=== PATIENT | male | born 1975 | race Two or more races ===

== ENCOUNTER 2020-12-01 09:47 | Outpatient (REF) | payer MEDICAID, SELFPAY ==
--- NOTE | ~2020-12-01 | US_ITS ---
EXAMINATION: US SCROTUM CLINICAL INFORMATION: Painful mass on right side of scrotum x 3 years. COMPARISON: None TECHNIQUE: A sonogram of the scrotum was performed assessing rosenberg-scale appearance and color Doppler flow. Spectral Doppler analysis of the arterial and venous flow were performed in the testes bilaterally. FINDINGS: RIGHT: Right testicle measures 4.4 x 2.3 x 3.5 cm, volume 18.5 mL. Superficial to the right testicle within the subcutaneous tissues, there is a 1.1 x 0.8 x 0.9 cm hyperechoic, ovoid lesion without Doppler detectable vascular flow. No testicular parenchymal lesion. Spectral Doppler analysis of the arterial and venous flow is normal in the right testis. Right epididymal head is normal in size. No right hydrocele or varicocele is seen. Right epididymal Doppler flow is normal. LEFT: Left testicle measures 5.0 x 2.3 x 3.1 cm, volume 18.8 mL. No focal testicular parenchymal lesions are visualized. Spectral Doppler analysis of the arterial and venous flow is normal in the left testis. Left epididymal head is normal in size. No left hydrocele or varicocele is seen. Left epididymal Doppler flow is normal. US/US scrotum IMPRESSION: Superficial soft tissue lesion adjacent to the right testicle measuring up to 1.1 cm which appears hyperechoic with no Doppler detectable vascular flow. Findings are nonspecific. No testicular parenchymal lesion.
== END 2020-12-01 09:48 | disposition home or self-care (01) ==
LOC: HO.US 09:47
PROVIDERS: PCP Internal Medicine; Visit Provider Nurse Practitioner Primary Care
DX: D17.9 Benign lipomatous neoplasm, unspecified (principal)
CPT/HCPCS: 76870

== ENCOUNTER → 2021-01-21 14:20 | Outpatient (BNVA) | payer MEDICAID, SELFPAY | PROVIDERS: PCP Internal Medicine; Visit Provider Urology | DX: N50.9 Disorder of male genital organs, unspecified (principal) | CPT/HCPCS: 99202 ==

== ENCOUNTER 2021-03-04 08:38 | Outpatient (REF) | payer MEDICAID, SELFPAY | END 2021-03-04 08:39 | disposition home or self-care (01) | LOC: HO.LAB 08:38 | PROVIDERS: PCP Internal Medicine; Visit Provider Urology | DX: L72.3 Sebaceous cyst (principal) | CPT/HCPCS: 11422; 88305; 88311 ==

== ENCOUNTER → 2021-03-18 10:11 | Outpatient (BNVA) | payer MEDICAID, SELFPAY | PROVIDERS: PCP Internal Medicine; Visit Provider Urology ==

== ENCOUNTER 2021-10-28 11:29 | Outpatient (REF) | payer MEDICAID, SELFPAY | END 2021-10-28 11:30 | disposition home or self-care (01) | LOC: HO.LAB 11:29 | PROVIDERS: Visit Provider Internal Medicine | DX: Z13.89 Encounter for screening for other disorder (principal) | CPT/HCPCS: 87635; C9803 ==

== ENCOUNTER 2023-04-19 09:26 | Outpatient (REF) | payer MEDICAID, SELFPAY ==
[2023-04-19 11:28] LABS: Estimated Average Glucose 169 mg/dL; Hemoglobin A1c % 7.5 %
[2023-04-19 12:09] LABS: Alanine Aminotransferase 31 U/L (0-40); Alkaline Phosphatase 120 U/L (39-117); Anion Gap 11 (12-20); Aspartate Amino Transferase 17 U/L (5-37); Bilirubin Total 0.8 mg/dL (0.0-1.0); Blood Urea Nitrogen 13 mg/dL (9-16); Calcium 9.3 mg/dL (8.4-10.2); Carbon Dioxide 26 mmol/L (22-29); Chloride 107 mmol/L (96-108); Estimated Glomerular Filt Rate > 60; Glucose Random 135 mg/dL (60-115); Potassium 3.9 mmol/L (3.3-5.1); Sodium 140 mmol/L (135-145); Total Protein 7.2 g/dL (6.5-8.0)
[2023-04-19 12:34] LABS: Folate 13.8 ng/mL (> or = 4.0); Vitamin B12 504 pg/mL (200-900)
[2023-04-22 13:33] LABS: H Pylori Breath Test Negative (Negative)
[2023-04-24 14:58] LABS: Vitamin D 25-OH, D2 <4 ng/mL; Vitamin D 25-OH, D3 20 ng/mL; Vitamin D 25-OH, Total 20 ng/mL (30-100)
[2023-04-25 12:48] LABS: Transglutaminase Ab IgG <1.0 U/mL; Transglutaminase IgA <1.0 U/mL
== END 2023-04-19 09:27 | disposition home or self-care (01) ==
LOC: HO.LAB 09:26
PROVIDERS: PCP Internal Medicine; Visit Provider Nurse Practitioner Family
DX: Z01.818 Encounter for other preprocedural examination (principal); R10.9 Unspecified abdominal pain; R14.0 Abdominal distension (gaseous); K21.9 Gastro-esophageal reflux disease without esophagitis; K64.9 Unspecified hemorrhoids; R11.0 Nausea; R10.13 Epigastric pain; K58.2 Mixed irritable bowel syndrome; K59.04 Chronic idiopathic constipation; K59.1 Functional diarrhea; E11.9 Type 2 diabetes mellitus without complications; E55.9 Vitamin D deficiency, unspecified
CPT/HCPCS: 36415; 80053; 82306; 82607; 82746; 83013; 83036; 86140; 86364; 99202

== ENCOUNTER 2023-04-20 10:27 | Outpatient (REF) | payer MEDICAID, SELFPAY | END 2023-04-20 10:28 | disposition home or self-care (01) | LOC: HO.LNP 10:27 | PROVIDERS: Visit Provider Nurse Practitioner Family | DX: Z13.89 Encounter for screening for other disorder (principal) | CPT/HCPCS: 83013 ==

== ENCOUNTER → 2023-08-17 09:51 | Outpatient (BNVA) | payer SELFPAY | PROVIDERS: PCP Internal Medicine; Visit Provider Internal Medicine ==

== ENCOUNTER 2024-07-19 14:19 | Outpatient (REF) | payer SELFPAY ==
[2024-07-19 16:43] LABS: Estimated Average Glucose 189 mg/dL; Hemoglobin A1c % 8.2 % (<6.0)
[2024-07-19 17:03] LABS: Alanine Aminotransferase 43 U/L (0-40); Albumin Level 4.2 g/dL (3.5-5.0); Alkaline Phosphatase 116 U/L (39-117); Anion Gap 12 (12-20); Aspartate Amino Transferase 31 U/L (5-37); Bilirubin Total 0.5 mg/dL (0.0-1.0); Blood Urea Nitrogen 16 mg/dL (9-16); Calcium 9.6 mg/dL (8.4-10.2); Carbon Dioxide 23 mmol/L (22-29); Chloride 108 mmol/L (96-108); Cholesterol 193 mg/dL (<200); Estimated Glomerular Filt Rate > 60; Glucose Random 123 mg/dL (60-115); HDL Cholesterol 38 mg/dL (>40); LDL Cholesterol Calculated 111 mg/dL (<100); Potassium 3.8 mmol/L (3.3-5.1); Sodium 139 mmol/L (135-145); Total Protein 7.5 g/dL (6.5-8.0); Triglycerides 223 mg/dL (<150)
[2024-07-19 17:18] LABS: Vitamin B12 429 pg/mL (200-900)
[2024-07-19 17:20] LABS: TSH reflex Free T4 0.49 uIU/mL (0.32-4.0)
[2024-07-20 07:50] LABS: H Pylori Breath Test Negative (Negative)
== END 2024-07-19 14:20 | disposition home or self-care (01) ==
LOC: HO.HHCL 14:19
PROVIDERS: Visit Provider Nurse Practitioner Primary Care
DX: K21.9 Gastro-esophageal reflux disease without esophagitis (principal); E55.9 Vitamin D deficiency, unspecified; E11.65 Type 2 diabetes mellitus with hyperglycemia; R09.A2 Foreign body sensation, throat
CPT/HCPCS: 36415; 80053; 80061; 82306; 82607; 83013; 83036; 84443

== ENCOUNTER 2025-02-18 11:14 | Outpatient (REF) | payer SELFPAY ==
--- OUTSIDE RECORDS SUMMARY | 2025-02-18 13:32 | XMS_ITS | Encounter Summary ---
Author Organization [employer] [facility] Address [address] [place] [address] Care Team Providers Care Furrier Shop Supervisor Name Role Phone Lanny Sherman MD Primary Care Provider + Reason for Visit * Reason Onset Date Comments FMLA 07/27/2024 Encounter Details Date Type Department Care Team ([facility] st Contact Info) Description 07/27/[address] [facility] [address], [place] [phone] Lanny Sherman MD [address] [place] [address] FMLA Social History Tobacco Use Types Packs/Day Years Used Date Smoking Tobacco: Never Smokeless Tobacco: Never Alcohol Use Standard Drinks/Week Comments Never 0 (1 standard drink = 0.6 oz pur e alcohol) Depression Answer Date Recorded Patient Health Questionnaire-9 Score 0 07/19/2024 Patient Health Questionnaire-9 Score 0 07/19/2024 Last PHQ-9: Questionnaire Data Not on file 0 07/19/2024 Housing Stability Answer Date Recorded What is your housing situation today? I have nyasiadavide dillard 07/19/[address] you li ve. Do you have problems with any of the following? None of the above 07/19/2024 Food Insecurity Answer Date Recorded Within the past 12 months, y ou worried that your food would run out before you got money to buy more: Never True 07/19/2024 Within the past 12 months,th e food you bought just didn't last and you didn't have enough money to get more: Never True Transportation Answer Date Recorded In the past 12 months, has l ack of transportation kept you from medical appts, meetings, work or from getting things needed for daily living? No 07/19/2024 Utilities Answer Date Recorded In the past 12 months, has t he electric, gas, oil or water company threatened to shut off services in your home? I am not sure 07/19/2024 Depression Answer Date Recorded Patient Health Questionnaire-2 Score 0 07/19/2024 Internet Access Answer Date Recorded Internet Access Q1 Yes 07/19/2024 Internet Access Q2 Not on file 07/19/2024 Sex and Gender Information Value Date Recorded Sex Assigned at Male 08/23/2022 10:34 AM EDT Legal Sex Male 10:34 AM EDT Gender Identity Choose not to disclose 10:34 AM EDT Sexual Orientation Choose not to disclose 2021 10:34 AM EDT documented as of this encounter Miscellaneous Notes * Telephone Encounter - Prasad Antunez - 07/27/2024 10:04 AM EDT Tc from pt calling in regards to FMLA paperwork he dropped off today stating he needs forms signed IAN, further stating he has until tomorrow to have forms signed. If any questions for pt you can contact pt at [phone]. (Monegasque Speaker) documented in this encounter Plan of Treatment Not on file documented as of this encounter Visit Diagnoses Not on filedocumented in this encounter Additional Health Concerns Assessment Noted Time PHQ-9 Depression Total Score: 0 07/19/20 24 2:05 PM EDT documented as of this encounter Care Teams Furrier Shop Supervisor Relationship Specialty Start Date End Date Lanny Sherman MD [address] [place] [id number] PCP - General Family Medicine 07/20/18 documented as of this encounter
--- OUTSIDE RECORDS SUMMARY | 2025-02-18 13:32 | XMS_ITS | Encounter Summary ---
Author Organization [employer] [facility] Address [address] [place] [address] Care Team Providers Care Balance Sheet Analyst Name Role Phone Lanny Sherman MD Primary Care Provider + Reason for Visit * Reason Onset Date Comments Nurse Triage 02/18/2025 Encounter Details Date Type Department Care Team ([facility] st Contact Info) Description 02/18/2025 Telephone [facility] [address] [place], [place] [phone] Lanny Sherman MD [address] [place] [address] Nurse Triage Social History Tobacco Use Types Packs/Day Years [...] encounter Miscellaneous Notes * Telephone Encounter - Stephanie Osuna RN - 02/18/2025 8:39 AM EDT No slubber runner needed as this tech writer speaks Burundian. Call returned to Daniel Montero to triage below. Reports having back pain x 3 days. Pain located lower of back. Pain does radiate to bilateral legs. Per pt no dark urine. Pt does endorse urinary frequency. No blood in urine. Pt having mild nausea. No vomiting or abd pain. Pt advised of disposition, agrees to sick on site today with team provider. Protocol Used: Back Pain (Adult) Protocol-Based Disposition: See in Office or Video Visit Today Future Appointments Date Time Provider Department Center 02/18/2025 10:00 AM Brooke Salinas NP MEDICINE [facility] Insurance verified as active per Real Time Eligibility in [facility]. Positive Triage Question: * Pain radiates into the thigh or further down the leg, and in both legs * All higher-acuity triage questions were negative Care Advice Discussed: * Reassurance and Education - Back Pain * Reasons To Call Back - Fever occurs - Numbness or weakness occurs - Loss of control of your bladder or bowel - You become worse * Telephone Encounter - Bhumi Eason - 02/18/2025 8:25 AM EDT Symptoms: Back Pain - Not From Injury, Nausea But No Vomiting Outcome: Transfer to a nurse or provider NOW! Reason: Age over 30: sudden AND severe upper back pain The caller accepted this outcome. [phone] romanian documented in this encounter Plan of Treatment Not on file documented as of this encounter Visit Diagnoses Not on filedocumented in this encounter Additional Health Concerns Assessment Noted Time PHQ-9 Depression Total Score: 0 07/19/20 24 2:05 PM EDT documented as of this encounter Care Teams Balance Sheet Analyst Relationship Specialty Start Date End Date Lanny Sherman MD [address] [place] [id number] PCP - General Family Medicine 07/20/18 documented as of this encounter
--- OUTSIDE RECORDS SUMMARY | 2025-02-18 13:32 | XMS_ITS | Encounter Summary ---
Author Organization [employer] Address [address] [place] [address] Care Team Providers Care Federal Mediator Name Role Phone Lanny Sherman MD Primary Care Provider + Encounter Details Date Type Department Care Team (Latest Contact Info) Description 02/18/2025 Travel Social History Tobacco Use Types Packs/Day Years [...] is your housing situation today? I have nyasia dillard 07/19/[address] you [...] AM EDT documented as of this encounter Plan of Treatment Not on file documented as of this encounter Visit Diagnoses Not on filedocumented in this encounter Additional Health Concerns Assessment Noted Time PHQ-9 Depression Total Score: 0 07/19/20 24 2:05 PM EDT documented as of this encounter Care Teams Federal Mediator Relationship Specialty Start Date End Date Lanny Sherman MD [address] [place] [address] PCP - General Family Medicine 07/20/18 documented as of this encounter
--- OUTSIDE RECORDS SUMMARY | 2025-02-18 13:32 | XMS_ITS | Clinical Summary ---
Author Organization [employer] Address [address] [place] [address] [address] [place] [address] Care Team Providers Care Cost Report Clerk Name Role Phone Lanny Sherman MD Primary Care Provider + Allergies No known active allergies Medications cetirizine (ZyrTEC) 10 MG tablet take 1 tablet by oral route every day 10/29/19 22 Active fluticasone (Flonase Allergy Relief) 50 MCG/ACT nasal spray inhale 1 spray by intranasal route every day in each nostril 10/29/19 22 Active sodium chloride ([place]) 0.65 % nasal spray Administer before and after blowing nose 10/29/19 22 Active glucose blood test stripIndication s:Type 2 diabetes mellitus with hyperglycemia, without long-term current use of insulin ([facility]) Use daily as instructed 100 each 3 05/06/20 23 Active metFORMIN (Glucophage) 1000 MG tablet Take 1 tablet (1,000 mg) by mouth with breakfast and with evening meal. 60 tablet 11 09/19/20 24 025 Active omeprazole (PriLOSEC) [address] capsuleIndicati ons:Gastroesoph ageal reflux disease, unspecified whether esophagitis present TAKE 1 CAPSULE (20 MG) BY MOUTH BEFORE BREAKFAST AND BEFORE EVENING MEAL. DO NOT CRUSH OR CHEW. 90 capsule 09/04/20 24 Active lisinopril 5 MG tabletIndicatio ns:Primary hypertension Take 1 tablet (5 mg) by mouth Once per day. 90 tablet 3 10/08/20 24 025 Active baclofen (Lioresal) 10 MG tabletIndicatio ns:Chronic bilateral low back pain without sciatica Take one tablet TID PRN 30 tablet 02/19/20 25 Active ibuprofen 600 MG tabletIndicatio ns:Chronic bilateral low back pain without sciatica Take 1 tablet (600 mg) by mouth every 6 (six) hours if needed for mild pain for up to 14 days. 56 tablet 02/19/20 25 025 Active cyclobenzaprine (Flexeril) 10 MG tabletIndicatio ns:Chronic bilateral low back pain without sciatica Take 1 tablet (10 mg) by mouth at bedtime. 30 tablet 09/19/20 24 025 Discontinued(M ed list cleanup (will not trigger notification to Pharmacy)) Active Problems Problem Noted Date Diagnosed Date Esophageal dysphagia 10/26/2024 Assessment & Plan (10/26/2024 9:03 PM EST): ?GERD? Hiatal hernia? Advised re small and fractionated meals Advised re weight reduction May do UGIS vs GI referral if sxs do not improve within 3mo Screening for malignant neoplasm of colon 2023 Overview (07/19/2024): Referred to GI 07/19/24 Diabetes due to undrl condition w oth diabetic n euro comp 11/28/2023 Assessment & Plan (11/28/2023 9:49 AM EST): Uncontrolled. A1c is at goal. Increase Metformin to 750 bid Counseled re more frequent low calorie/carb meals. Check fgstk 2x daily Encouraged physical activity as tolerated. FU in 3 months. Primary hypertension 11/28/2023 Assessment & Plan (10/26/2024 8:56 PM EST): Fairly controlled. Continue off meds Counseled re low salt diet/increase moderate physical activity. Check home BP BIW and prn CP/ELIAS/QUIJANO Non smoking patient. FU in 3mo Assessment & Plan (11/28/2023 9:32 AM EST): Uncontrolled. Compliant w/meds Restart lisinopril 5 mg/d Counseled re low salt diet/increase moderate physical activity. Check home BP BIW and prn CP/ELIAS/QUIJANO Non smoking patient. FU 1mo Household circumstance affecting care 11/28/2023 Chronic bilateral low back pain without sciatica 06/06/2023 Assessment & Plan (02/18/2025 11:15 AM EDT): -acute on chronic presentation -low suspicion for cauda equina syndrome based on PE and symptom description -musculoskeletal in nature based on mechanism and description -Reviewed RICE (rest, ice, compression, and elevation.) -NSAIDs q 8h w/ food and baclofen Rx'd -Consider ice/heat as preferred 20 min on, 20 mins off. -reviewed benefits PT to prevent further weakening of muscles, and he expresses interest. 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 Assessment & Plan (10/26/2024 8:59 PM EST): He hasn't fully fu with POC re PT and rest, I can fill out FMLA so that he can attend PT. Advised to restart PT, working restrictions re heavy weights, lifting and bending over Advised to come to acupuncture clinic. Assessment & Plan (11/28/2023 9:49 AM EST): Patient hasn't fu POC for different reasons. I will reorder PT and MRI L-spine and fu in 6w Restart tylenol + Flexeril + Diclofenac gel I will sign FMLA x 3mo (intermittent, starting today) so he can to PT and be on light duty. He's aware that further complete disability needs, he should fu with SSI/state disability. I told him that I'm unable to write a Light duty or out of work letter for the days he didn't go to work outside of the FMLA signed on . Assessment & Plan (07/19/2023 3:40 PM EDT): Pt insists Sx are not imporving with light duty work. Discussed importance of weight reduction, continued exercise, and continued PT. He will be out of work for now due to being unable to complete his jobs at times. FMLA will be filled for the next 3 months. If he feels he's unable to go back to work, I advise him to FU with disability services however I think he should be able to work after he completes his rx, in any other job where lifting is not required. Use tylenol and diclofenac gel PRN Continue PT Order MRI of lumbar spine Continue Tylenol, Ibuprofen and flexeril prn Assessment & Plan (06/06/2023 9:34 AM EDT): Persistent, Refer to PT, I will extend light duty for 3m and re evaluate. I had signed FMLA previously. Use tylenol prn pain. Obesity with body mass index (BMI) of 30.0 to 39 .9 06/06/2023 Assessment & Plan (06/06/2023 9:34 AM EDT): Discussed re weight reduction options including exercise, life style modifications, diet, referral to systems software specialist. Discussed re lower calorie intake, increase dietary fiber Rectal bleeding 03/02/2023 Assessment & Plan (05/06/2023 11:10 AM EDT): Resolved. Pt seen at [facility], colonosocpy pending FU with me after colonoscopy Assessment & Plan (03/02/2023 12:26 PM EDT): Most likely related to external hemorrhoids, resolved. referral for colonscopy still pending prescription for clotrimazole cream + otc zinc oxide for rectal ulcer, reconsult PRN Exercise counseling 03/02/2023 Hernia of abdominal wall 03/02/2023 Assessment & Plan (03/02/2023 12:24 PM EDT): on the left side. counseled regarding weight reduction avoid valsalva maneuvers or lifting heavy weights he may need accomadation at work to prevent heavy lifting Dietary counseling 03/02/2023 Type 2 diabetes mellitus wit h hyperglycemia, without long-term current use of insulin 03/02/2023 Assessment & Plan (10/26/2024 8:57 PM EST): Most likely uncontrolled, I will increase Metformin to 1000mg bid and fu in 6- 8w. Counseled re more frequent low calorie/carb meals. Check fgstk 1x daily Encouraged physical activity as tolerated. FU in 2 months. Assessment & Plan (07/19/2023 2:54 PM EDT): Most likely uncontrolled, he agreed to start metformin Counseled re more frequent low calorie/carb meals. Check fgstk daily Encouraged physical activity as tolerated. FU in 6 weeks Assessment & Plan (06/06/2023 9:33 AM EDT): Still with hyperglycemia mostly related to poor dietary choices. I educated him about low carb meal options. Counseled re more frequent low calorie/carb meals. Check fgstk 1x daily Encouraged physical activity as tolerated. Referral to game warden sent on February, will fu with them re appt. FU in 3 months. Assessment & Plan (05/06/2023 11:11 AM EDT): Uncontrolled, may be a candidate for Metformin I stressed importance of checking fingersticks at home and stick to low emily diet, information for dietitian given to pt Counseled re more frequent low calorie/carb meals. Encouraged physical activity as tolerated. FU in 4 weeks with glucometer Assessment & Plan (03/02/2023 12:23 PM EDT): New onset order labs and check fingersticks daily Counseled re more frequent low calorie/carb meals. Encouraged physical activity as tolerated. FU in 3-4 weeks Residual hemorrhoidal skin tags 03/02/2023 Assessment & Plan (03/02/2023 12:22 PM EDT): Partially healing use clotrimazole cream + zinc oxide colonoscopy pending Alopecia 10/26/2022 Blurring of visual image 10/26/2022 Disturbance in sleep behavior 10/26/2022 Hypertriglyceridemia 10/26/2022 Assessment & Plan (10/26/2024 9:00 PM EST): Uncontrolled, likely related to uncontrolled DM. Advised re tight control DM, may start Actos next appt if A1c is not at goal. Recommended moderate amount of exercise and increase consumption of fruit, vegetables, fish and high fiber foods. Should decrease consumption of highly saturated fats or trans fats. 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 Vitiligo 07/20/2018 Resolved Problems Problem Noted Date Diagnosed Date Resolved Date Prediabetes 10/26/2022 05/06/2023 Assessment & Plan (03/02/2023 12:25 PM EDT): New onset type 2 dm, See below Elevated blood-pressure read ing without diagnosis of hypertension 11/01/2018 11/28/2023 Assessment & Plan (10/26/2024 8:53 PM EST): Controlled. Compliant w/meds Continue lisinopril/hctz + amlodipine same dose Counseled re low salt diet/increase moderate physical activity. Check home BP BIW and prn CP/ELIAS/QUIJANO Non smoking patient. Assessment & Plan (06/06/2023 9:32 AM EDT): BP has been below 130/85 mot times at home. Continue off meds. Counseled re low salt diet/increase moderate physical activity. Check home BP BIW and prn CP/ELIAS/QUIJANO Non smoking patient. FU in 3mo Assessment & Plan (05/06/2023 11:11 AM EDT): Pt seems to have preHTN Counseled re low salt diet/increase moderate physical activity. Non smoking patient. Check BP at home BIW and FU in 3-4 weeks. Assessment & Plan (03/02/2023 12:23 PM EDT): Check BP at home daily Counseled re low salt diet/increase moderate physical activity. Check home BP BIW and prn CP/ELIAS/QUIJANO Non smoking patient. FU with me in 3-4 weeks Encounters Date Type Department Care Team Description 02/18/2025 10:00 AM EDT Office Visit [facility] [address] [place] [address] Brooke Salinas NP Chronic bilateral low back pain without sciatica (Primary Dx); Pain in both testicles 02/18/2025 Travel 02/18/2025 Telephone [facility] [address], [place] [phone] Lanny Sherman MD Nurse Triage 02/08/2025 Telephone [facility] [address], [place] [phone] Lanny Sherman MD Nurse Triage 01/04/2025 Population Health Risk Score [facility] () Department [address] [place] [phone] Provider, Population Health Generic 12/31/2024 Telephone [facility] [address] [place] [address] Lanny Sherman MD No Show 12/25/2024 Patient Outreach [facility] [address], [place] [phone] Lanny Sherman MD Pre-visit Planning (LVM ) from Last 3 Months Immunizations Name Administration Dates Next Due Influenza injectable quadriv alent IIV4 with preservative 09/13/2019,07/20/2018 Influenza injectable quadrivalent preservative f ree 11/20/2020 Influenza, seasonal, injectable, preservative fr ee 07/19/2024 Pfizer Covid-19 Vaccine 12+ roque-sucrose (Johnson C ap) 06/04/2022 Tdap 11/20/2020 Social History Tobacco Use Types Packs/Day Years [...] not to disclose 2021 10:34 AM EDT Last Filed Vital Signs Vital Sign Reading Time Taken Comments Blood Pressure 127/87 02/18/2025 10:01 AM EDT Pulse 107 02/18/2025 10:01 AM EDT Temperature 36.6 ??C (97.9 ??F) 02/18/2025 10:01 AM E DT Respiratory Rate 20 02/18/2025 10:01 AM EDT Oxygen Saturation 98% 02/18/2025 10:01 AM EDT Inhaled Oxygen Concentration - - Weight 110 kg (243 lb 9.6 oz) 02/18/2025 10:01 A M EDT Height 170.2 cm (5' 7 ) 10/08/2024 12:57 PM EST Body Mass Index 38.15 10/08/2024 12:57 PM EST Plan of Treatment Health Maintenance Due Date Last Done Comments CT Colonography 1976 Colonoscopy 1976 Colorectal Cancer Screening 1976 FIT DNA/Cologuard 1976 FIT 1976 FOBT 1976 HIV Screening 1976 Sigmoidoscopy 1976 Diabetes: Foot Exam 1986 Eye Exam 1986 Alcohol/Substance Use Screening 1988 Family Planning (PISQ) 1991 Hepatitis C Screening 1994 Diabetes: Urine Protein Screening 1995 Hepatitis B Vaccines (1 of 3 - 19+ 3-dose series) 1995 Pneumococcal Vaccine: Pediatrics (0 to 5 Years) and At-Risk Patients (6 to 49) Years) (1 of 2 - PCV) 1995 COVID-19 Vaccine ( - season) 2024 06/04/2022, 07/28/2021, 07/07/2021 Diabetes: Hemoglobin A1C 10/18/2024 024, 11/28/2023, 04/19/2023, Additional history exists Depression Screening 07/19/2025 07/19/2024, 07/19/20 24 Lipid Panel 07/19/2025 07/19/2024, 0510/2022, 07/10/2021 SDOH Screening 07/19/2025 07/19/2024 Tobacco Screening 10/08/2025 10/08/2024 Zoster Vaccines (1 of 2) 2026 DTaP/Tdap/Td Vaccines (2 - Td or Tdap) 11/20/2030 11/20/2020 RSV Patients and Patients Aged 60 years or older (1 - 1-dose 75+ series) 2051 Influenza Vaccine Completed 07/19/2024, , 09/13/2019, Additional history exists HIB Vaccines Aged Out No longer eligi ble based on patient's age to complete this topic HPV Vaccines Aged Out No longer eligi ble based on patient's age to complete this topic Hepatitis A Vaccines Aged Out No long er eligible based on patient's age to complete this topic IPV Vaccines Aged Out No longer eligi ble based on patient's age to complete this topic Meningococcal Vaccine Aged Out No nestor anna eligible based on patient's age to complete this topic RSV under 20 months Aged Out No longe r eligible based on patient's age to complete this topic Rotavirus Vaccines Aged Out No longer eligible based on patient's age to complete this topic Procedures Procedure Name Priority Date/Time Associated Diagnosis Comments HEMOGLOBIN A1C Routine 07/19/2024 2:22 PM EDT Type 2 diabetes mellitus with hyperglycemia, without long-term current use of insulin ([facility]) LIPID PANEL, STANDARD Routine 07/19/2024 2:22 PM EDT Type 2 diabetes mellitus with hyperglycemia, without long-term current use of insulin ([facility]) from Last 3 Months or Most Recently Relevant to Health Maintenance Results * (ABNORMAL) Hemoglobin A1c (07/19/2024 2:22 PM EDT) Hemoglobin A1c 8.2(H) <6.0 % [facility] Comment:Hemoglobin A1C Refer ence Range Adults: 4.8 - 6.0 % Non diabetic: < 6.0 % Goal: < 7.0 %Additional Action Suggested: > 8.0 %Note: Hemoglobin A1c results are invalid for patients with abnormal amounts of HbF. Blood transfusions may impact the HbA1c concentration in the patient sample. Estimated Average Glucose 189 mg/dL [facility] Comment:eAG = Estimated ave rage glucose which is %A1C expressed asaverage glucose, using the formula of the [id number] Glucose study (ADAG), Diabetes Care, Vol.31,#8,May. 2007 Blood Venous blood specimen / Unknown 07/19/2024 2:22 PM EDT 07/19/2024 4:14 PM EDT us Kiya [facility] LAB BLOOD ORDERABLES Final Resul t [facility] [address] [place] [phone] * (ABNORMAL) Lipid Panel, Standard (07/19/2024 2:22 PM EDT) Triglycerides 223(H) <150 mg/dL [facility] Comment:Desirable Triglyceri de: less than 150 mg/dLBorderline High Triglyceride 150-199 mg/dLHigh Triglyceride: 200-499 mg/dLVery High Triglyceride: greater than or equal to 5OO mg/dL Cholesterol 193 <200 mg/dL [facility] Comment:Desirable Cholestero l: less than 200 mg/dLBorderline High Cholesterol: 200-239 mg/dLHigh Cholesterol: greater than 239 mg/dL LDL Cholesterol Calculated 111(H) <100 mg/dL [facility] Comment:Desirable LDL: less than 100 mg/dLNear Optimal/Above Optimal LDL: 110- 129 mg/dLBorderline High LDL: 130-159 mg/dLHigh LDL: 160-189 mg/dLVery High LDL: greater than or equal to 190 mg/dL HDL Cholesterol 38(L) >40 mg/dL [facility] Comment:Desirable HDL: great er than 40 mg/dL Note: This HDL assay may give artificially low results in patients with liver disease. Blood Venous blood specimen / Unknown 07/19/2024 2:22 PM EDT 07/19/2024 4:14 PM EDT Replaced by [facility] BLOOD ORDERABLES Final Resul t [facility] [address] [place] [phone] from Last 3 Months or Most Recently Relevant to Health Maintenance Insurance [employer] Care Teams Cost Report Clerk Relationship Specialty Start Date End Date Lanny Sherman MD [address] [place] [phone] PCP - General Family Medicine 07/20/18
--- OUTSIDE RECORDS SUMMARY | 2025-02-18 13:32 | XMS_ITS | Encounter Summary ---
Author Organization [employer] [facility] Address [address] [place] [address] [address] [address] Care Team Providers Care Enrichment Specialist Name Role Phone Lanny Sherman MD Primary Care Provider + Reason for Referral * Consultation (Routine) - Pending Review Specialty Diagnoses / Procedures Referred By Contac t Referred To Contact Physical Therapy Diagnoses Chronic bilateral low back pain without sciatica Brooke Salinas NP [address] [place] [address] Phone: tel: fax: Referral ID Status Reason Start Date Expiration Date Visits Requested Visits Authorized [id number] Pending Review Specialty Services Required 02/18/2025 02/18/2026 1 1 * Imaging (Routine) - Authorized Specialty Diagnoses / Procedures Referred By Contac t Referred To Contact Radiology Diagnoses Pain in both testicles Procedures US Scrotum Brooke Salinas NP [address] [place] [address] Phone: tel: fax: [address] Phone: tel: fax: Referral ID Status Reason Start Date Expiration Date V isits Requested Visits Authorized [id number] Authorized 02/18/2025 02/18/2026 1 1 Reason for Visit * Reason Comments Back Pain Encounter Details Date Type Department Care Team (Late st Contact Info) Description 02/18/2025 10:00 AM EDT Office Visit [facility] [address] [facility] [place], [place] [phone] Brooke Salinas NP [address] [facility] [place] [address] Chronic bilateral low back pain without sciatica (Primary Dx); Pain in both testicles Social History Tobacco Use Types Packs/Day Years [...] AM EDT documented as of this encounter Last Filed Vital Signs Vital Sign Reading [...] oz) 02/18/2025 10:01 A M EDT Height - - Body Mass Index 38.15 10/08/2024 12:57 PM EST documented in this encounter Miscellaneous Notes * Assessment & Plan Note - Brooke Salinas NP - 02/18/2025 11:09 AM EDTAssociated Problem(s): Chronic bilateral low back pain without sciatica -acute on chronic presentation -low suspicion for [...] discoloration, numbness, severe tingling, significant swelling, severe pain,or coolness of extremity. documented in this encounter Plan of Treatment Scheduled Orders Name Type Priority Associated Diagnoses Orde r Schedule Mycoplasma/Ureaplasma?? Panel Microbiology Routine Pain in both testicles Expected: 02/18/2025 (Approximate), Expires: 02/18/2026 Chlamydia/N. Gonorrhoeae RNA, TMA, Urine Microbiology Routine Pain in both testicles Expected: 02/18/2025 (Approximate), Expires: 02/18/2026 Trichomonas RNA (Urine/Vaginal) Lab Routine Pain in both testicles Ordered: 02/18/2025 Urinalysis, Complete, with Reflex to Culture Lab Routine Pain in both testicles Ordered: 02/18/2025 US Scrotum Imaging Routine Pain in both testicles Expected: 02/18/2025, Expires: 02/18/2026 PSA, Screen Lab Routine Pain in both testicles Expected: 02/18/2025 (Approximate), Expires: 02/18/2026 Scheduled Referrals Name Type Priority Associated Diagnoses Orde r Schedule Referral to Physical Therapy Outpatient Referral Routine Chronic bilateral low back pain without sciatica Expected: 02/18/2025 (Approximate), Expires: 02/18/2026 documented as of this encounter Visit Diagnoses Diagnosis Chronic bilateral low back pain without sciatica- Primary Pain in both testicles documented in this encounter Additional Health Concerns Assessment Noted Time PHQ-9 Depression Total Score: 0 07/19/20 24 2:05 PM EDT documented as of this encounter Care Teams Enrichment Specialist Relationship Specialty Start Date End Date Lanny Sherman MD [address] [place] [phone] PCP - General Family Medicine 07/20/18 documented as of this encounter
--- OUTSIDE RECORDS SUMMARY | 2025-02-18 13:32 | XMS_ITS | Encounter Summary ---
Author Organization [employer] Address [address] [facility] [address] [place] [address] Care Team Providers Care Radio Producer Name Role Phone Lanny Sherman MD Primary Care Provider + Reason for Visit * Reason Onset Date Comments FMLA 08/15/2023 Encounter Details Date Type Department Care Team ([facility] st Contact Info) Description 08/15/2023 Telephone [facility] [address] [place], [place] [phone] Lanny Sherman MD [address] [place] [address] FMLA Social History Tobacco Use Types Packs/Day Years Used Date Smoking Tobacco: Never Smokeless Tobacco: Never Alcohol Use Standard Drinks/Week Comments Never 0 (1 standard drink = 0.6 oz pur e alcohol) Housing Stability Answer Date Recorded What is your housing situation today? I have nyasiadavide [place]illard 08/15/[address] you li ve. Do you have problems with any of the following? None of the above 08/15/2023 Food Insecurity Answer Date Recorded Within the past 12 months, y ou worried that your food would run out before you got money to buy more: Never True 08/15/2023 Within the past 12 months,th e food you bought just didn't last and you didn't have enough money to get more: Never True Transportation Answer Date Recorded In the past 12 months, has l ack of transportation kept you from medical appts, meetings, work or from getting things needed for daily living? No 08/15/2023 Utilities Answer Date Recorded In the past 12 months, has t he electric, gas, oil or water company threatened to shut off services in your home? No 08/15/2023 Depression Answer Date Recorded Patient Health Questionnaire-2 Score 0 03/02/2023 Sex and Gender Information Value Date Recorded Sex Assigned at Male 08/23/2022 10:34 AM EDT Legal Sex Male 10:34 AM EDT Gender Identity Choose not to disclose 10:34 AM EDT Sexual Orientation Choose not to disclose 2021 10:34 AM EDT documented as of this encounter Miscellaneous Notes * Telephone Encounter - My Hilario - 08/15/2023 12:52 PM EDT Tc from pt requesting status on [facility] paperwork. Please contact pt at [phone] (Setswana) documented in this encounter Plan of Treatment Not on file documented as of this encounter Visit Diagnoses Not on filedocumented in this encounter Care Teams Radio Producer Relationship Specialty Start Date End Date Lanny Sherman MD [address] [place] [address] PCP - General Family Medicine 07/20/18 documented as of this encounter
[2025-02-18 13:52] LABS: Prostate Specific Antigen Scr 0.97 ng/mL (<0.05-4.0)
[2025-02-18 14:38] LABS: CT PCR NOT DETECTED (Not Detect.); NG PCR NOT DETECTED (Not Detect.)
== END 2025-02-18 11:15 | disposition home or self-care (01) ==
LOC: HO.HHCL 11:14
PROVIDERS: Visit Provider Nurse Practitioner
DX: Z12.5 Encounter for screening for malignant neoplasm of prostate (principal); N50.812 Left testicular pain; N50.811 Right testicular pain
CPT/HCPCS: 84153; 87491; 87591

== ENCOUNTER 2025-08-14 04:13 | Emergency (ER) | payer MEDICAID, SELFPAY ==
--- NOTE | 2025-08-14 | ECG_ITS ---
Test Reason : sob Blood Pressure : */* mmHG Vent. Rate : 112 BPM Atrial Rate : 112 BPM P-R Int : 142 ms QRS Dur : 82 ms QT Int : 332 ms P-R-T Axes : 27 -1 26 degrees QTcB Int : 453 ms Sinus tachycardia Otherwise normal ECG No previous ECGs available Referred By: Generic ED Physician Electronically Signed By: GISSELLE CHENG MD
--- NOTE | ~2025-08-14 | XR_ITS ---
EXAMINATION: XR CHEST CLINICAL INFORMATION: pain COMPARISON: None available. TECHNIQUE: Frontal view of the chest was obtained. FINDINGS: No consolidation, pleural effusion or pneumothorax. Mild prominence of the interstitial markings. Poor inspiration. Cardiomediastinal silhouette size is normal. Osseous structures are intact. Patient's large body habitus/obesity. XR/XR chest 1V IMPRESSION: Consider acute small airway inflammatory processes in the correct medical settings. Electronically signed by: Elton Duncan MD 08/14/2025 07:39 AM EDT
[2025-08-14 04:16] VITALS: BP 189/106; PULSE 118; RESP 20; TEMP 37; O2SAT 100; BMI 39.2
--- OUTSIDE RECORDS SUMMARY | 2025-08-14 05:18 | XMS_ITS | Encounter Summary ---
Author Organization [employer] Address [address] [facility] [address] [place] [address] Care Team Providers Care Director Of Outside Sales Name Role Phone Lanny Sherman MD Primary Care Provider + Reason for Visit * Reason Onset Date Comments FMLA 08/15/2023 Encounter Details Date Type Department Care Team ([facility] st Contact Info) Description 08/15/2023 Telephone [facility] [address] [place], [place] [phone] Lanny Sherman MD [address] [place] [address] FMLA Social History Tobacco Use Types Packs/Day [...] Miscellaneous Notes * Telephone Encounter - My Rich - 08/15/2023 12:52 PM EDT Tc from pt requesting status on [facility] paperwork. Please contact pt at [phone] (Citizen Of [place]) documented in this encounter Plan of Treatment Upcoming Encounters Date Type Department Care Team (Late st Contact Info) Description 08/27/2025 9:45 AM EST Office Visit [facility] [address] [place] [phone] Lanny Sherman MD [address] [place] [phone] documented as of this encounter Visit Diagnoses Not on filedocumented in this encounter Care Teams Director Of Outside Sales Relationship Specialty Start Date End Date Lanny Sherman MD [address] [place] [phone] PCP - General Family Medicine 07/20/18 documented as of this encounter
--- OUTSIDE RECORDS SUMMARY | 2025-08-14 05:18 | XMS_ITS | Clinical Summary ---
Author Organization [employer] Address [address] [facility] [address] [place] [address] Care Team Providers Care Pharmacy Resource Tech Name Role Phone Lanny Sherman MD Primary Care Provider + Allergies No known active allergies Medications cetirizine (ZyrTEC) 10 MG tablet take 1 tablet by oral route every day 10/29/19 22 Active fluticasone (Flonase Allergy Relief) 50 MCG/ACT nasal spray inhale 1 spray by intranasal route every day in each nostril 10/29/19 22 Active sodium chloride ([place]) 0.65 % nasal spray Administer before and after blowing nose 10/29/19 22 Active glucose blood test stripIndication s:Type 2 diabetes mellitus with hyperglycemia, without long-term current use of insulin (HCC) Use daily as instructed 100 each 3 05/06/20 23 Active lisinopril 5 MG tabletIndicatio ns:Benign essential hypertension Take 1 tablet (5 mg) by mouth Once per day. 30 tablet 2 07/19/20 25 025 Active metFORMIN (Glucophage) 1000 MG tabletIndicatio ns:Type 2 diabetes mellitus with hyperglycemia, without long-term current use of insulin (HCC) Take 1 tablet (1,000 mg) by mouth with breakfast and with evening meal. 60 tablet 2 07/19/20 25 10/17/ 025 Active omeprazole (PriLOSEC) [address] capsuleIndicati ons:Gastroesoph ageal reflux disease, unspecified whether esophagitis present Take 1 capsule (20 mg) by mouth before breakfast. Do not crush or chew. 30 capsule 2 07/19/20 25 Active tiZANidine (Zanaflex) 2 MG tabletIndicatio ns:Chronic bilateral low back pain without sciatica Take 1 tablet (2 mg) by mouth every 8 (eight) hours if needed for muscle spasms for up to 10 days. (Please do not drive or operate heavy machines) 30 tablet 07/19/20 Active Alcohol Swabs (Alcohol Pads) 70 % padsIndications :Type 2 diabetes mellitus with hyperglycemia, without long-term current use of insulin (HCC) Use as directed on skin 2-3x/day 100 each 07/19/20 Active glucose blood (FREESTYLE LITE) test stripIndication s:Type 2 diabetes mellitus with hyperglycemia, without long-term current use of insulin (HCC) Use as directed on skin 2-3x/day 100 each 07/19/20 Active FreeStyle lancetsIndicati ons:Type 2 diabetes mellitus with hyperglycemia, without long-term current use of insulin ([facility]) 1 each by Other route 2 times daily. 100 each 07/19/20 25 Active metFORMIN (Glucophage) 1000 MG tablet Take 1 tablet (1,000 mg) by mouth with breakfast and with evening meal. 60 tablet 11 09/19/20 Discontinued(R eorder (will not trigger notification to Pharmacy)) omeprazole (PriLOSEC) [address] capsuleIndicati ons:Gastroesoph ageal reflux disease, unspecified whether esophagitis present TAKE 1 CAPSULE (20 MG) BY MOUTH BEFORE BREAKFAST AND BEFORE EVENING MEAL. DO NOT CRUSH OR CHEW. 90 capsule 09/04/20 025 Discontinued(R eorder (will not trigger notification to Pharmacy)) lisinopril 5 MG tabletIndicatio ns:Primary hypertension Take 1 tablet (5 mg) by mouth Once per day. 90 tablet 3 10/08/20 025 Discontinued(R eorder (will not trigger notification to Pharmacy)) baclofen (Lioresal) 10 MG tabletIndicatio ns:Chronic bilateral low back pain without sciatica Take one tablet TID PRN 30 tablet 02/19/20 025 Discontinued FreeStyle lancetsIndicati ons:Type 2 diabetes mellitus with hyperglycemia, without long-term current use of insulin (HCC) 1 each by Other route if needed in the morning, at noon, and at bedtime (to check blood glucose). Use bid, dx type 2 diabetes 100 each 2 07/19/20 25 025 Discontinued Active Problems Problem Noted Date Diagnosed Date [...] exercise, life style modifications, diet, referral to capital markets specialist. Discussed re lower calorie intake, increase dietary fiber Rectal bleeding 03/02/2023 Assessment & Plan (05/06/2023 11:10 AM EDT): Resolved. Pt seen at [facility], colonosocpy pending FU with me after [...] Encouraged physical activity as tolerated. Referral to district ranger sent on February, will fu with them [...] Encounters Date Type Department Care Team Description 07/19/2025 10:20 AM EDT Office Visit [facility] [address] [place] [phone] Tavo Sewell MD Chronic bilateral low back pain without sciatica (Primary Dx); Gastroesophageal reflux disease, unspecified whether esophagitis present; Type 2 diabetes mellitus with hyperglycemia, without long-term current use of insulin ([facility]); Benign essential hypertension 07/19/2025 Telephone [facility] [address] [place] [phone] Tavo Sewell MD Care Coordination 07/19/2025 Refill [facility] [address] [place] [address] Tavo Sewell MD Type 2 diabetes mellitus with hyperglycemia, without long-term current use of insulin ([facility]) 07/19/2025 Travel 07/16/[address] [address] Lanny Sherman MD Nurse Triage 06/19/[address] [address] Lanny Sherman MD november recall 05/30/[address] [address] Lanny Sherman MD telephone call 05/30/[address] [address] Lanny Sherman MD chart prep 05/22/2025 Patient Outreach [address] [address] Lanny Sherman MD Pre-visit Planning (SDOH screening negative and tobacco screening negative) from Last 3 Months Immunizations Immunization Administration Dates Next Due Influenza injectable quadriv [...] to shut off services in your home? Yes 05/22/2025 Depression Answer Date Recorded Patient Health Questionnaire-2 [...] Sign Reading Time Taken Comments Blood Pressure 155/100 07/19/2025 10:20 AM EDT Pulse 79 07/19/2025 10:20 AM EDT Temperature 36.7 C (98.1 F) 07/19/2025 10:20 AM EDT Respiratory Rate 16 07/19/2025 10:20 AM EDT Oxygen Saturation 99% 07/19/2025 10:20 AM EDT Inhaled Oxygen Concentration - - Weight 110 kg (243 lb 6.4 oz) 07/19/2025 10:20 A M EDT Height 170.2 cm (5' 7 ) 10/08/2024 12:57 PM EST Body Mass Index 38.12 10/08/2024 12:57 PM EST Plan of Treatment Upcoming Encounters Date Type Department Care Team (Late st Contact Info) Description 08/27/2025 9:45 AM EST Office Visit [facility] [address] [place] [address] Lanny Sherman MD [address] [place] [address] Health Maintenance Due Date Last Done Comments CT Colonography 1976 Colonoscopy 1976 Colorectal Cancer Screening 1976 FIT DNA/Cologuard 1976 FIT 1976 FOBT 1976 HIV Screening 1976 Sigmoidoscopy 1976 Disability Screening 1976 Diabetes: Foot Exam 1986 Eye Exam 1986 Alcohol/Substance Use Screening 1988 Family Planning (PISQ) 1991 Hepatitis C Screening 1994 Diabetes: Urine Protein Screening 1995 Hepatitis B Vaccines (1 of 3 - 19+ 3-dose series) 1995 Pneumococcal Vaccine: Pediatrics (0 to 5 Years) and At-Risk Patients (6 to 49) Years (1 of 2 - PCV) 1995 COVID-19 Vaccine ( - season) 2025 06/04/2022, 07/28/2021, 07/07/2021 Influenza Vaccine (#1) 2025 , 11/20/2020, 09/13/2019, Additional history exists Depression Screening 07/19/2025 07/19/2024, 07/19/20 24 Lipid Panel 07/19/2025 07/19/2024, 05/1 10/2022, 07/10/2021 Tobacco Screening 10/08/2025 10/08/2024 Diabetes: Hemoglobin A1C 10/18/2025 025, 07/19/2024, 11/28/2023, Additional history exists SDOH Screening 05/22/2026 05/22/2025 Zoster Vaccines (1 of 2) 2026 DTaP/Tdap/Td Vaccines (2 - Td or Tdap) 11/20/2030 11/20/2020 RSV Patients and Patients Aged 60 years or older (1 - 1-dose 75+ series) 2051 HIB Vaccines Aged Out No longer eligi [...] patient's age to complete this topic Meningococcal B Vaccine Aged Out No l onger eligible based on patient's age to complete [...] Procedure Name Priority Date/Time Associated Diagnosis Comments POCT URINALYSIS DIPSTICK Routine 07/19/2025 11:04 AM EDT Chronic bilateral low back pain without sciatica POCT GLYCOSYLATED HEMOGLOBIN (HGB A1C) Routine 07/19/2025 11:03 AM EDT Type 2 diabetes mellitus with hyperglycemia, without long-term current use of insulin ([facility]) POCT GLUCOSE Routine 07/19/2025 11:01 AM EDT Type 2 diabetes mellitus with hyperglycemia, without long-term current use of insulin ([facility]) LIPID PANEL, STANDARD Routine 07/19/2024 2:22 PM EDT Type 2 diabetes mellitus with hyperglycemia, without long-term current use of insulin ([facility]) from Last 3 Months or Most Recently Relevant to Health Maintenance Results * (ABNORMAL) POCT urinalysis dipstick manually resulted (07/19/2025 11:04 AM EDT) Color, UA Yellow Clarity, UA Clear Glucose, UA 1+ 70+ Bilirubin, UA Negative Ketones, UA Negative Spec Grav, UA 1.025 Blood, UA Positive(A) Negative, None Detected Comment:trace pH, UA 5.5 Protein, UA Trace Urobilinogen, UA 0.2 Leukocytes, UA Negative Negative, Rare, Trace Nitrite, UA Negative Negative, None Detected Appearance, UA clear QC Media Lot # [id number] Lot# Expiration Date [id number] Urine 07/19/2025 11:0 4 AM EDT us Tavo Sewell MD POINT OF CARE TEST ENTER/EDIT OR DERABLES Final Result * (ABNORMAL) POCT glycosylated hemoglobin (Hgb A1c) (07/19/2025 11:03 AM EDT) Hemoglobin A1C 8.9(A) 4.0 - 5.7 % QC Media Lot # [id number] Lot# Expiration Date [id number] Blood Capillary blood specimen / Unknown 07/19/2025 11:03 AM EDT us Tavo Sewell MD POINT OF CARE TEST ENTER/EDIT OR DERABLES Final Result * POCT glucose manually resulted (07/19/2025 11:01 AM EDT) Pathologist [facility] Glucose Blood, POC [id number] - 200 mg/dL QC Media Lot # [id number] Lot# Expiration Date [id number] Blood Capillary blood specimen / Unknown 07/19/2025 11:01 AM EDT us Tavo Sewell MD POINT OF CARE TEST ENTER/EDIT OR DERABLES Final Result * (ABNORMAL) Lipid Panel, Standard (07/19/2024 2:22 PM EDT) Triglycerides 223(H) <150 mg/dL [facility] Comment:Desirable Triglyceri de: less than 150 mg/dLBorderline High Triglyceride 150-199 mg/dLHigh Triglyceride: 200-499 mg/dLVery High Triglyceride: greater than or equal to 5OO mg/dL Cholesterol 193 <200 mg/dL [facility] Comment:Desirable Cholestero l: less than 200 mg/dLBorderline High Cholesterol: 200-239 mg/dLHigh Cholesterol: greater than 239 mg/dL LDL Cholesterol Calculated 111(H) <100 mg/dL [facility] Comment:Desirable LDL: less than 100 mg/dLNear Optimal/Above Optimal LDL: 110- 129 mg/dLBorderline High LDL: 130-159 mg/dLHigh LDL: 160-189 mg/dLVery High LDL: greater than or equal to 190 mg/dL HDL Cholesterol 38(L) >40 mg/dL [facility] Comment:Desirable HDL: great er than 40 mg/dL Note: This HDL assay may give artificially low results in patients with liver disease. Blood Venous blood specimen / Unknown 07/19/2024 2:22 PM EDT 07/19/2024 4:14 PM EDT Kiya Barney [facility] BLOOD ORDERABLES Final Resul t [facility] [address] [place] [phone] from Last 3 Months or Most Recently Relevant to Health Maintenance Insurance C3 Care Teams Pharmacy Resource Tech Relationship Specialty Start Date End Date Lanny Sherman MD [address] [place] [phone] PCP - General Family Medicine 07/20/18
--- OUTSIDE RECORDS SUMMARY | 2025-08-14 05:18 | XMS_ITS | Encounter Summary ---
Author Organization [employer] Address [address] [facility] [address] [place] [address] Care Team Providers Care Pulley Worker Name Role Phone Lanny Sherman MD Primary Care Provider + Reason for Visit * Reason Onset Date Comments FMLA 07/27/2024 Encounter Details Date Type Department Care Team ([facility] st Contact Info) Description 07/27/2024 Telephone [facility] [address] [place], [place] [phone] Lanny Sherman MD [address] [place] [address] FMLA Social History Tobacco Use Types Packs/Day [...] for pt you can contact pt at [phone]. ([place] Speaker) documented in this encounter Plan of Treatment Upcoming Encounters Date Type Department Care Team (Late st Contact Info) Description 08/27/2025 9:45 AM EST Office Visit [facility] [address] [place] [address] Lanny Sherman MD [address] [place] [address] documented as of this encounter Visit Diagnoses Not on filedocumented in this encounter Additional Health Concerns Assessment Noted Time PHQ-9 Depression Total Score: 0 07/19/20 24 2:05 PM EDT documented as of this encounter Care Teams Pulley Worker Relationship Specialty Start Date End Date Lanny Sherman MD [address] [place] [address] PCP - General Family Medicine 07/20/18 documented as of this encounter
[2025-08-14 05:30] LABS: COVID-19 Test Negative (Negative); IDNOW Serial# 152EDE1D; IDNOW Serial# 16C4AD1C; Strep A Nucleic Acid Negative (Negative)
--- NOTE | 2025-08-14 06:15 | ED_ITS ---
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 He has never had this before. He denies recent travel/procedures/infectious symptoms. He states he took his metformin and BP med this AM and drank some Galan drink. No new medications/stimulants. He notes he is feeling better now. He has not been sick recently. He does note he is under a lot of stress due to his mother's illness. MD complaint: multiple complaints Onset (ago): hour(s) (3am) Location: chest Radiation: non-radiation Severity: mild Pain Consistency: now resolved Relieving factors: none Exacerbating factors: none Associated symptoms: chest pain and weakness Treatments prior to arrival: none Related Data Previous Rx's ?Medication ?Instructions ?Recorded methylcellulose (laxative) 500 mg 500 mg PO DAILY #30 tabs 04/19/23 tablet (Citrucel) sennosides 8.6 mg tablet (Natural 8.6 mg PO BEDTIME co nstipation #90 04/19/23 Senna Laxative) tabs omeprazole 20 mg capsule,delayed 20 mg PO DAILY #90 ca ps 07/15/23 release hydroxyzine HCl 25 mg tablet 25 mg PO Q8H PRN anxiety #30 tabs 08/14/25 Allergies Allergy/AdvReac Type Severity Reaction Status Date / Time No Known Allergies Allergy Verified 08/14/25 04:20 Review of Systems 2 Review of Systems: Constitutional : No Weight loss, No Fever, No Chills ENT/Mouth : No sore throat, No Rhinorrhea Eyes: No Swelling, No Redness Cardiovascular : No Chest Pain, No SOB Respiratory : No Cough, No Sputum, No Wheezing Gastrointestinal : Positive Nausea, no Vomiting, no Diarrhea, positive abdominal Pain, No Hematochezia, No Melena Genitourinary : No Dysuria, No Urinary Frequency, No Hematuria, No Urgency Musculoskeletal : No joint pain, No Myalgias, No Joint Swelling Skin : No Skin Lesions, No rash Neuro : pos Weakness, No Numbness, No Dizziness, No Headache All other systems reviewed and are negative. [facility] Past Medical History Attestation statement: The following information was validated with the patient. Source: old records reviewed Medical History Anxiety disorder Angiolipoma Alopecia Surgical History Hx of pancreatitis Family History Family History (Updated 04/19/23 @ 09:45 by Helio Haddad) Mother Diabetes HTN (hypertension) Father Diabetes HTN (hypertension) Maternal Uncle Tumor Maternal Uncle Stomach cancer Maternal Uncle Colon cancer Maternal Aunt Stomach cancer Social History Social History Household Members: Significant Other Alcohol intake: never Patient Tobacco Use Status: Never used Tobacco Smoked in Last 30 Days: No Use of substances other than those prescribed or required for medical reasons: No Advance Directives: No Advance Directives Information Provided: Yes Physical Exam ED Vital Signs: Vital Signs - 24 hr 08/14/25 04:16 08/14/25 06:36 08/14/25 07:57 Temperature 98.6 F 98.2 F 97.7 F Pulse Rate 118 H 102 H 93 Respiratory Rate 20 16 16 Blood Pressure 189/106 H 139/100 H 141/87 H Pulse Oximetry 100 96 99 Oxygen Delivery Method Room Air Room Air Room Air BMI result Body Mass Index 39.2 Appearance: Alert. Oriented X3. No acute distress. Eyes: Pupils equal, round and reactive to light. ENT: Pharynx normal. Neck: Normal inspection. Neck supple. CVS: Normal heart rate and rhythm. Pulses normal. Respiratory: No respiratory distress. Breath sounds normal. Abdomen: Soft and nontender. Skin: Skin warm and dry. Normal skin color. Extremities: No lower extremity edema. Neuro: Oriented X 3. No motor deficit. No sensory deficit. Medications Administered Discontinued Medications Generic Name Dose Route Start Last Admin Trade Name Freq PRN Reason Stop Dose Admin Hydroxyzine HCl 25 mg 08/14/25 06:41 08/14/25 06:47 Hydroxyzine Hcl 25 Mg Tablet PO 08/14/25 06:42 25 mg ONCE ONE Administration Medical Decision Making Medical Decision Making [facility] Narrative: 49 yo male with PMH Of GERD and anxiety here with c/o atypical chest pain, sweats and anxiety due to recent illness of his mother. He has no signs of angioedema on exam his HR and BP are coming down. He has no risk factors for VTE - will start on atarax and obtain labs, lytes, EKG, CXR. His symptoms improved since he has been here which would be atypical for dissection/VTE. Differential Diagnosis Differential Diagnoses: The differential diagnosis associated with the presentation includes anxiety, lyte abnormality, HTN Admission/Observation Consideration of admission/observation: Escalation of care including admission/observation considered negative work up stable for DC, VS improved Lab Data [facility] Lab Attestation statement: I reviewed the patient's lab results. 08/14/25 06:26 08/14/25 06:26 Labs: Lab Results 08/14/25 08/14/25 08/14/25 Range/Units 05:01 05:03 06:26 WBC 9.6 (4.8-10.8) X10*3/uL RBC 6.21 H (4.60-5.80) X10*6/uL Hgb 14.6 (14.0-18.0) g/dl Hct 44.7 (42.0-52.0) % MCV 72.0 L (80.0-98.0) fL MCH 23.5 L (27.0-33.0) pg MCHC 32.7 (31.0-36.0) g/dl RDW 13.8 (11.0-16.0) % Plt Count 305 (160-400) X10*3/uL MPV 9.6 (9.4-12.4) fL Immature Gran % (Auto) 0.9 H (0.0-0.4) % Neut % (Auto) 69.5 (45-73) % Lymph % (Auto) 14.2 L (20-40) % [place] % (Auto) 9.7 (2-11) % Eos % (Auto) 5.0 H (0-4) % Baso % (Auto) 0.7 (0-2) % Lymph # (Auto) 1.4 (1.2-4.9) X10*3/uL [place] # (Auto) 0.9 (0.1-1.2) X10*3/uL Eos # (Auto) 0.5 H (0.0-0.4) X10*3/uL Baso # (Auto) 0.1 (0.0-0.2) X10*3/uL Abs Immat Gran (auto) 0.09 H (0.00-0.03) X10*3/uL Absolute Neuts (auto) 6.6 (2.0-8.3) x10*3/uL Absolute Nucleated RBC 0.000 (0.0-0.012) X10*3/uL Nucleated RBC % (auto) 0.0 (0.0-0.2) /100WBC Sodium 137 (135-145) mmol/L Potassium 4.1 (3.3-5.1) mmol/L Chloride 107 (96-108) mmol/L Carbon Dioxide 23 (22-29) mmol/L Anion Gap 11 L (12-20) BUN 16 (9-16) mg/dL Creatinine 0.70 (0.5-1.4) mg/dL Estim Creat Clear Calc 150.3 Estimated GFR > 60 POC Glucose 226 H (60-115) mg/dL Random Glucose 219 H (60-115) mg/dL Calcium 9.0 D (8.4-10.2) mg/dL Magnesium 1.9 (1.6-2.6) mg/dL Total Bilirubin 0.4 (0.0-1.0) mg/dL Direct Bilirubin 0.1 (0.0-0.5) mg/dL AST 20 (5-37) U/L ALT 33 (0-40) U/L Alkaline Phosphatase 123 H (39-117) U/L Troponin I High Sens < 2.7 (<3.5-35.0) ng/L Total Protein 7.2 (6.5-8.0) g/dL Albumin 4.4 (3.5-5.0) g/dL Urine Opiates Screen (Not Detect) Ur Buprenorphine Scrn (Not Detect) ng/mL Ur Oxycodone Screen (Not Detect) ng/mL Urine Methadone Screen (Not Detect) ng/mL Urine Fentanyl Screen (Not Detect) Ur Barbiturates Screen (Not Detect) Ur Phencyclidine Scrn (Not Detect) Ur Amphetamines Screen (Not Detect) U Benzodiazepines Scrn (Not Detect) Urine Cocaine Screen (Not Detect) U Marijuana (THC) Screen (Not Detect) Ethyl Alcohol < 10 mg/dL COVID-19 (DORITA) Negative (Negative) COVID-19 Clin Com See Note S. pyogenes GrpA SAMI Negative (Negative) 08/14/25 Range/Units 06:28 WBC (4.8-10.8) X10*3/uL RBC (4.60-5.80) X10*6/uL Hgb (14.0-18.0) g/dl Hct (42.0-52.0) % MCV (80.0-98.0) fL MCH (27.0-33.0) pg MCHC (31.0-36.0) g/dl RDW (11.0-16.0) % Plt Count (160-400) X10*3/uL MPV (9.4-12.4) fL Immature Gran % (Auto) (0.0-0.4) % Neut % (Auto) (45-73) % Lymph % (Auto) (20-40) % [place] % (Auto) (2-11) % Eos % (Auto) (0-4) % Baso % (Auto) (0-2) % Lymph # (Auto) (1.2-4.9) X10*3/uL [place] # (Auto) (0.1-1.2) X10*3/uL Eos # (Auto) (0.0-0.4) X10*3/uL Baso # (Auto) (0.0-0.2) X10*3/uL Abs Immat Gran (auto) (0.00-0.03) X10*3/uL Absolute Neuts (auto) (2.0-8.3) x10*3/uL Absolute Nucleated RBC (0.0-0.012) X10*3/uL Nucleated RBC % (auto) (0.0-0.2) /100WBC Sodium (135-145) mmol/L Potassium (3.3-5.1) mmol/L Chloride (96-108) mmol/L Carbon Dioxide (22-29) mmol/L Anion Gap (12-20) BUN (9-16) mg/dL Creatinine (0.5-1.4) mg/dL Estim Creat Clear Calc Estimated GFR POC Glucose (60-115) mg/dL Random Glucose (60-115) mg/dL Calcium (8.4-10.2) mg/dL Magnesium (1.6-2.6) mg/dL Total Bilirubin (0.0-1.0) mg/dL Direct Bilirubin (0.0-0.5) mg/dL AST (5-37) U/L ALT (0-40) U/L Alkaline Phosphatase (39-117) U/L Troponin I High Sens (<3.5-35.0) ng/L Total Protein (6.5-8.0) g/dL Albumin (3.5-5.0) g/dL Urine Opiates Screen Not Detected (Not Detect) Ur Buprenorphine Scrn Not Detected (Not Detect) ng/mL Ur Oxycodone Screen Not Detected (Not Detect) ng/mL Urine Methadone Screen Not Detected (Not Detect) ng/mL Urine Fentanyl Screen Not Detected (Not Detect) Ur Barbiturates Screen Not Detected (Not Detect) Ur Phencyclidine Scrn Not Detected (Not Detect) Ur Amphetamines Screen Not Detected (Not Detect) U Benzodiazepines Scrn Not Detected (Not Detect) Urine Cocaine Screen Not Detected (Not Detect) U Marijuana (THC) Screen Not Detected (Not Detect) Ethyl Alcohol mg/dL COVID-19 (DORITA) (Negative) COVID-19 Clin Com S. pyogenes GrpA SAMI (Negative) Independent Interpretation I performed an independent interpretation of an: EKG and Plain X-Ray (normal ) Interpretation: Rate: 112 Rhythm: sinus tachycardia [place]: left Normal P waves. Normal [place]. Normal QRS complex. ST T wave : normal no DAFNE qTC: 453 prior studies: no prior The study has been interpreted contemporaneously by me. . Radiology Impression Discussion of test interpretation with radiology: I have reviewed the radiologist's reading. External Record Review External record reviewed: Outpatient record Prescription Management I considered prescription management with: Other Discharge Plan Discharge Clinical Impression: Atypical chest pain Patient Disposition: Home, Self-Care Instructions: Chest Pain (ED) Additional Instructions: labs reassuring chest xray normal EKG reassuring negative for covid and strep rest and stay hydrated, return for any worsening symptoms or concerns please take your anxiety meds as needed follow up with your doctor As we discussed your cardiac work up was reassuring in the Emergency Department. 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 You will need further work up such as ECHO, cardiac stress testing, coronary CT angiogram to assess your cardiac risk. Prescriptions: New hydroxyzine HCl 25 mg tablet 25 mg PO Q8H PRN (Reason: anxiety) Qty: 30 0RF No Action omeprazole 20 mg capsule,delayed release(DR/EC) 20 mg PO DAILY Qty: 90 1RF Citrucel 500 mg tablet 500 mg PO DAILY Qty: 30 2RF Rx Instructions: take it with full glass of water sennosides [Natural Senna Laxative] 8.6 mg tablet 8.6 mg PO BEDTIME Qty: 90 3RF Stand Alone Forms: Work/School Release Print Language: Greenlandic
[2025-08-14 06:34] LABS: MANUAL DIFF FLAG NO
[2025-08-14 06:35] LABS: Hematocrit 44.7 % (42.0-52.0); Hemoglobin 14.6 g/dl (14.0-18.0); Imm Gran Abs Auto 0.09 X10*3/uL (0.00-0.03); Imm Gran Pct Auto 0.9 % (0.0-0.4); Lymphocytes Absolute Auto 1.4 X10*3/uL (1.2-4.9); Mean Corpuscular HGB Conc 32.7 g/dl (31.0-36.0); Mean Corpuscular Hemoglobin 23.5 pg (27.0-33.0); Mean Corpuscular Volume 72.0 fL (80.0-98.0); NRBC Abs Auto 0.000 X10*3/uL (0.0-0.012); NRBC Pct Auto 0.0 /100WBC (0.0-0.2); Platelet Count 305 X10*3/uL (160-400); Red Blood Count 6.21 X10*6/uL (4.60-5.80); White Blood Count 9.6 X10*3/uL (4.8-10.8)
[2025-08-14 06:36] VITALS: BP 139/100; PULSE 102; RESP 16; TEMP 36.8; O2SAT 96
[2025-08-14 06:46] LABS: Cannabinoid Screen Urine Not Detected (Not Detect)
[2025-08-14 06:51] LABS: Alanine Aminotransferase 33 U/L (0-40); Albumin Level 4.4 g/dL (3.5-5.0); Alkaline Phosphatase 123 U/L (39-117); Anion Gap 11 (12-20); Aspartate Amino Transferase 20 U/L (5-37); Blood Urea Nitrogen 16 mg/dL (9-16); Calcium 9.0 mg/dL (8.4-10.2); Carbon Dioxide 23 mmol/L (22-29); Chloride 107 mmol/L (96-108); Creatinine Clr Calc Pharmacy 150.3; Estimated Glomerular Filt Rate > 60; Magnesium 1.9 mg/dL (1.6-2.6); Potassium 4.1 mmol/L (3.3-5.1); Sodium 137 mmol/L (135-145); Total Protein 7.2 g/dL (6.5-8.0)
[2025-08-14 06:55] LABS: Troponin-I High Sensitivity < 2.7 ng/L (<3.5-35.0)
[2025-08-14 07:44] LABS: Glucose, Whole Blood 226 mg/dL (60-115)
[2025-08-14 07:57] VITALS: BP 141/87; PULSE 93; RESP 16; TEMP 36.5; O2SAT 99
[2025-08-14 08:58] VITALS: BP 141/87; PULSE 93; RESP 16; TEMP 36.5; O2SAT 99
== END 2025-08-14 09:00 | disposition home or self-care (01) ==
PROVIDERS: Emergency Provider Emergency Medicine
DX: R07.89 Other chest pain (principal); I95.9 Hypotension, unspecified; R53.1 Weakness; R13.10 Dysphagia, unspecified; Z51.81 Encounter for therapeutic drug level monitoring; Z79.899 Other long term (current) drug therapy; Z11.52 Encounter for screening for COVID-19
CPT/HCPCS: 36415; 71045; 80048; 80076; 80307; 82947; 83735; 84484; 85025; 87635; 87651; 93005; 99283; 99284

== ENCOUNTER → 2025-08-14 04:49 | Outpatient (BNV) | payer MEDICAID, SELFPAY | PROVIDERS: Emergency Provider Emergency Medicine; Visit Provider Internal Medicine Cardiovascular Disease | DX: R00.0 Tachycardia, unspecified (principal) | CPT/HCPCS: 93010 ==

== ENCOUNTER → 2025-08-14 06:17 | Outpatient (BNV) | payer MEDICAID, SELFPAY | PROVIDERS: Emergency Provider Emergency Medicine; Visit Provider Radiology Diagnostic Radiology | DX: R07.9 Chest pain, unspecified (principal) | CPT/HCPCS: 71045 ==